=== PATIENT | male | born 1940 | race Caucasian/White ===

== ENCOUNTER 2016-06-23 16:35 | Inpatient (IN) | payer MEDICARE, OTHER ==
--- NOTE | ~2016-06-23 | OP ---
Record Of Operation [facility] [address] [place]. [address] NAME: LYDIA CHANG : 42 STATUS : ADM IN PAT#: [id number] AGE: 75 ADM/REG DATE : 06/23/16 MR#: [id number] REPORT SERV DATE: 06/23/16 DICTATED BY: HOSEA REYES DATE: 06/23/16 REPORT STATUS : Draft TRANSCRIBED BY: MODL DATE: 06/23/16 DATE OF PROCEDURE: 06/23/2016 INDICATION FOR THIS PROCEDURE: Acute inferior wall myocardial infarction. PROCEDURE IN DETAIL: The patient had already been prepped and draped. A 6-English sheath was placed in the right femoral artery from preceding cardiac catheterization. A 6 JR4 coronary guiding catheter was advanced to right coronary ostium, right coronary artery injections confirmed the presence of 100% occlusion of the previously stented segment in the mid right coronary artery proximal to the origin of the right posterior descending branch. A 0.014 Graphix guidewire was passed into the distal right coronary artery. The vessel was dilated with 3.0/15 emerge balloon at up to 15 atmospheres pressure for 15 seconds in duration. After balloon inflations, some flow was reestablished into the distal vessel, it was apparent that there was a large amount of thrombus in the previously stented segment but no obvious stenosis. The Graphix guidewire was exchanged for 0.014 Grand Slam guidewire and thrombectomy was performed using a Pronto thrombectomy catheter. The Pronto catheter could not be passed in the more distal segment of the right coronary artery, and decided to proceed with Angiojet thrombectomy. Using the Seldinger technique, a 6-English sheath was placed in the right femoral vein and a transvenous pacing catheter was advanced to the right ventricular apex. Thrombectomy was then performed using the Angiojet device. The Grand Slam guidewire was then redirected into the distal right posterior descending branch and additional thrombectomy was performed. Intracoronary Cardene was administered through Transit infusion catheter. Following removal of the guidewire and catheter, final right coronary artery injection showed 0% residual stenosis at the site of previous occlusion with MACKENZIE grade 3 distal flow. The guiding catheters and temporary pacing catheter were removed and the sheath was left in place. There were no apparent complications. TOTAL CONTRAST USED: 230 mL. TOTAL RADIATION EXPOSURE: 1430 mGy. ESTIMATED BLOOD LOSS: No significant blood loss occurred. IMPRESSION: Recanalization of totally occluded stent in mid right coronary artery using balloon angioplasty, AngioJet thrombectomy, and intracoronary infusion of Cardene. KLEBER/MAURA Hosea Reyes M.D., F.A.C.C. / [id number] CC: Record Of Operation [address] [address] NAME: LYDIA CHANG : 42 STATUS : ADM IN [facility]#: [id number] AGE: 75 ADM/REG DATE : 06/23/16 MR#: [id number] REPORT SERV DATE: 06/23/16 DICTATED BY: HOSEA REYES DATE: 06/23/16 REPORT STATUS : Draft TRANSCRIBED BY: MAURA DATE: 06/23/16 Hosea Reyes M.D., F.A.C.CMD Duke Tatum M.D.
--- NOTE | ~2016-06-23 | OP ---
Record Of Operation [facility] [address] [place]. [address] NAME: LYDIA CHANG : 42 STATUS : ADM IN PAT#: [id number] AGE: 75 ADM/REG DATE : 06/23/16 MR#: [id number] REPORT SERV DATE: 06/23/16 DICTATED BY: HOSEA REYES DATE: 06/23/16 REPORT STATUS : Draft TRANSCRIBED BY: MAURA DATE: 06/23/16 DATE OF PROCEDURE: 06/23/2016 CARDIAC CATHETERIZATION REPORT INDICATION FOR THIS PROCEDURE: Acute inferior wall myocardial infarction procedure. PROCEDURE: The patient was brought emergently to the cardiac catheterization laboratory after presenting to the ER with a new onset substernal chest discomfort and minimal J-point elevation in the inferior leads. The patient was prepped and draped in usual sterile fashion. Adequate anesthesia was obtained over the right femoral vessels using lidocaine infiltration. Using the Seldinger technique, a 6-Bulgarian sheath was placed in the right femoral artery. A 6 FL4 coronary catheter was advanced to the left coronary ostium. Left coronary artery injections were performed in multiple views. Left coronary catheter was then exchanged for a 6 FR4 coronary catheter which was advanced to the right coronary ostium. Right coronary injections were then performed in the BRUNEIAN view. The right coronary catheter was exchanged for a 6-Bulgarian pigtail catheter, which was advanced into the left ventricular cavity. Pressures were measured across the aortic valve. A left ventricular angiogram was obtained in the GARNICA projection. The pigtail catheter was removed over a guidewire and the sheath was left in place in anticipation of subsequent angioplasty. There were no apparent complications. RESULTS: 1. Pressures: The left ventricular end-diastolic pressure was 15 mmHg and no gradient was present across the aortic valve. 2. Left ventricular angiogram: Left ventricle showed inferobasilar hypokinesis with global ejection fraction of 50%. 3. Coronary arteriograms: The left main coronary artery is normal. Left anterior descending coronary artery is normal. Left circumflex coronary artery is normal. The right coronary artery was a dominant vessel, and the previously stented segment in the mid vessel proximal to the origin of the posterior descending branch was 100% occluded. IMPRESSION: Acute occlusion of previously stented segment proximal to the origin of right posterior descending branch. PLAN: Proceed with PCI. KLEBER/MAURA Hosea Reyes M.D., NerissaCRanjanC. / [id number] Record Of Operation [address] [address] NAME: LYDIA CHANG : 42 STATUS : ADM IN PAT#: [id number] AGE: 75 ADM/REG DATE : 06/23/16 MR#: [id number] REPORT SERV DATE: 06/23/16 DICTATED BY: HOSEA REYES DATE: 06/23/16 REPORT STATUS : Draft TRANSCRIBED BY: MAURA DATE: 06/23/16 CC: Hosea Reyes M.D., AldenCRanjan Wright M.D.
--- NOTE | ~2016-06-23 | DS ---
Discharge Summary [facility] [address] [place]. [address] NAME: LYDIA CHANG : 42 STATUS : DIS IN PAT#: [id number] AGE: 75 ADM/REG DATE : 06/23/16 MR#: [id number] REPORT SERV DATE: 07/04/16 DICTATED BY: HOSEA REYES DATE: 07/03/16 REPORT STATUS : Draft TRANSCRIBED BY: MAURA DATE: 07/03/16 Data Collection from hospitalization DISCHARGE DIAGNOSES: 1. ST-elevation myocardial infarction - acute, status post percutaneous transluminal coronary angioplasty of the right coronary artery. 2. Small cell lung cancer. 3. Chronic kidney disease - stable. 4. Urinary tract infection. 5. Coronary artery disease. 6. Hypertension. 7. Obstructive sleep apnea. 8. Hyperlipidemia. 9. Chronic obstructive pulmonary disease. CONSULTATIONS: Mario Solis MD PROCEDURES PERFORMED: Cardiac catheterization and percutaneous coronary intervention, 06/23/2016. DISCHARGE MEDICATIONS: Aspirin 81 mg daily, Coreg 3.125 mg twice a day, Omnicef 300 mg twice a day, Prinivil 10 mg every evening, melatonin 5 mg at bedtime, Zofran 8 mg sublingually every 4 to 6 hours, MiraLAX powder one packet daily as needed, Compazine 5 mg every 8 hours as needed, Crestor 1 tablet daily in the a.m., Brilinta 90 mg twice a day, and Spiriva HandiHaler one capsule via inhaler daily. CONDITION AT DISCHARGE: Stable. DISPOSITION: The patient was discharged home on an 1800-calorie cardiac/diabetic diet with activities as instructed. He will follow up with me on 07/10/2016. HOSPITAL COURSE: This is a 75-year-old man who has a history of myocardial infarction approximately five years ago. The patient presented to the emergency room at this time with complaints of oppressive substernal chest discomfort of approximately six hours duration. It was associated with some nausea and vomiting. The patient had recently started chemotherapy for lung cancer. He was admitted to the hospital at this time for further evaluation and treatment. Upon admission, it was felt that he would need to undergo cardiac catheterization and possible percutaneous coronary intervention. He was taken to the cardiac biology laboratory assistant where he underwent the above-mentioned procedure. He tolerated this well. There were no complications. The following day, he was seen by Dr. Mario Solis. The patient has limited stage small cell lung cancer, and was on chemo/radiation therapy. He had no chest pain at this time. He did have some chills. He had some dysuria and frequency. If it was okay with Cardiology, he wanted to continue radiation therapy. He completed cycle 2 chemotherapy the week prior to this admission. The patient does have benign prostatic hypertrophy and obstruction issue. Cultures were going to be obtained, Rocephin was started while we awaited culture results. Creatinine was near his baseline. He did have some Discharge Summary [address] [address] NAME: LYDIA CHANG : 42 STATUS : DIS IN PAT#: [id number] AGE: 75 ADM/REG DATE : 06/23/16 MR#: [id number] REPORT SERV DATE: 07/04/16 DICTATED BY: HOSEA REYES DATE: 07/03/16 REPORT STATUS : Draft TRANSCRIBED BY: MAURA DATE: 07/03/16 nausea and chills. Radiation therapy was going to be performed. His lungs were clear. On the , low-dose CORNELIUS inhibitor was started. He was able to eat a little. His T-max was 99.2. He had no edema. His dysuria resolved. He was afebrile. His Zofran was increased. Creatinine level had improved. He was going to be changed to oral Rocephin the following day. Discharge planning was performed. On 06/26/2016, his nausea had improved, he was breathing okay. He denied any dysuria. His T-max was 100. He had no edema. Radiation therapy has been provided. Creatinine was at baseline. He had been found to have E coli urinary tract infection with neutropenia and low-grade temp. His antibiotic was changed to Omnicef. He had no chest pain. Discharge instructions were given. Due to his improved and stable condition, he was discharged home with the above-stated instructions. Information collected by: Bre Arce I submit the above information as my discharge summary. ROB/MAURA Hosea Reyes M.D., Nnamdi / [id number] CC: Hosea Reyes M.D., Rachel Carson MD
--- NOTE | ~2016-06-23 | HP ---
History And Physical [address] [place]. [address] NAME: LYDIA CHANG : 42 STATUS : ADM IN PAT#: [id number] AGE: 75 ADM/REG DATE : 06/23/16 MR#: [id number] REPORT SERV DATE: 06/23/16 DICTATED BY: AMANDA GONZALES DATE: 06/23/16 REPORT STATUS : Draft TRANSCRIBED BY: MODL DATE: 06/23/16 DATE OF ADMISSION: 06/23/2016 DATE OF PROCEDURE: 06/23/2016. INDICATIONS FOR PROCEDURE: Acute coronary syndrome. HISTORY: The patient is a 75-year-old white male with a history of a myocardial infarction approximately 5 years ago. The patient presented to the emergency room with a complaint of oppressive substernal chest discomfort of approximately 6 hours duration. It was associated with some nausea and vomiting. Patient recently started chemotherapy for lung cancer. PAST MEDICAL HISTORY: Remarkable for coronary artery disease and lung cancer. SOCIAL HISTORY: The patient quit smoking about a year and half ago. FAMILY HISTORY: Positive for coronary disease. REVIEW OF SYSTEMS: The patient denies cough, wheeze, or sputum production. He has had some nausea and vomiting associated with this chest pain. He has nod had any diarrhea or dysuria. PHYSICAL EXAMINATION: VITAL SIGNS: Blood pressure is 108/70, heart rate is 80 and regular, respirations 16 and nonlabored. HEENT: Unremarkable. NECK: No jugular venous distention with good carotid upstroke. CHEST: Clear. CARDIOVASCULAR: The PMI is not displaced. S1 is normal. S2 is narrowly split. No gallop is present. ABDOMEN: Soft and nontender with normal bowel sounds. EXTREMITIES: No cyanosis, clubbing, or edema. SKIN: Warm and dry with no pallor or icterus. NEURO/PSYCH: The patient is oriented x3 with appropriate affect. DIAGNOSTIC DATA: EKG shows sinus rhythm with about 1 mm of J-point elevation in the inferior leads. IMPRESSION: 1. Acute coronary syndrome. 2. Lung cancer. PLAN: Proceed with cardiac catheterization and possible PCI. SS/MODL History And Physical [address] [address] NAME: LYDIA CHANG : 42 STATUS : ADM IN PAT#: [id number] AGE: 75 ADM/REG DATE : 06/23/16 MR#: [id number] REPORT SERV DATE: 06/23/16 DICTATED BY: AMANDA GONZALES DATE: 06/23/16 REPORT STATUS : Draft TRANSCRIBED BY: MAURA DATE: 06/23/16 anda Gonzales M.D., F.A.C.C. / [id number]
[~2016-06-23 16:35] MED LIST: ASAB PO; CEFT5 PO; CRESTOR10 PO; LISINOPRIL40 MG PO; MELATONIN5 M1 PO; MIRALAX POWDER1 PKT PO; SPIRIVA INH
[2016-06-23 17:28] LABS: BASOPHILS 0.3 %; BASOPHILS ABSOLUTE 0.02 10/3/uL (0.0-0.16); EOSINOPHILS 0 %; HEMOGLOBIN 12.3 g/dL (13.6-17.8); IMMATURE GRANULOCYTES 1.6 %; IMMATURE GRANULOCYTES ABSOLUTE 0.09 10/3/uL (0.0-0.11); LYMPHOCYTES 2.6 %; LYMPHOCYTES ABSOLUTE 0.15 10/3/uL (0.67-4.30); MEAN CORPUS HGB CONC 34.9 g/dL (32.0-36.0); MEAN CORPUSCULAR HEMOGLOB 29.1 pg (26.0-34.0); MEAN PLATELET VOLUME 8.8 fL (9.2-13.0); MONOCYTES 0.2 %; MONOCYTES ABSOLUTE 0.01 10/3/uL (0.21-1.20); NEUTROPHILS 95.3 %; NEUTROPHILS ABSOLUTE 5.53 10/3/uL (2.02-8.40); RBC DISTRIBUTION WIDTH 15.6 % (12.0-16.0); RED CELL COUNT 4.22 10/6/uL (4.7-6.1); WHITE BLOOD CELLS 5.8 10/3/uL (4.5-10.5)
[2016-06-23 17:33] LABS: HEMATOCRIT 35.2 % (40.0-51.0); MANUAL DIFF NO %; MEAN CORPUSCULAR VOLUME 83.4 fL (80-100); PLATELET COUNT 403 10/3/uL (150-400)
[2016-06-23 17:41] LABS: INFLUENZA A SCREEN NEGATIVE (NEGATIVE); INFLUENZA B SCREEN NEGATIVE (NEGATIVE)
[2016-06-23 17:46] LABS: LACTATE 3.1 MMOL/L (0.3-2.4)
[2016-06-23 17:48] LABS: A/G RATIO 0.7 (0.7-1.9); ALKALINE PHOSPHATASE 79 U/L (45-117); CALCIUM, SERUM 8.9 MG/DL (8.5-10.4); CHLORIDE, SERUM 99 MMOL/L (96-112); CO2 (CARBON DIOXIDE) 22 MMOL/L (24-34); CREATININE 1.36 MG/DL (0.70-1.30); GFR AFRICAN AMERICAN 59 ML/MIN (>=60); GFR NON AFRICAN AMERICAN 51 ML/MIN (>=60); GLOBULIN 4.1 G/DL (2.5-4.1); POTASSIUM, SERUM 4.3 MMOL/L (3.5-5.3); SGOT(AST) 13 U/L (5-40); SGPT(ALT) 29 U/L (5-65); SODIUM, SERUM 135 MMOL/L (135-148); TOTAL BILIRUBIN 0.4 MG/DL (0-1.2); TOTAL PROTEIN 7.1 G/DL (6.0-8.5)
[2016-06-23 17:50] LABS: BUN (BLOOD UREA NITROGEN) 25 MG/DL (6-23); GLUCOSE, SERUM 178 MG/DL (60-99)
[2016-06-23] MEDS ORDERED: PLAVIX PO (18:03)
[2016-06-23 19:56] LABS: ASCORBIC ACID (UR NOT ORDER) NEG (NEG); BILIRUBIN, URINE NEGATIVE (NEG); ER URINALYSIS TAT 0 Hrs 12 Mins; KETONE, URINE NEGATIVE (NEG); LEUKOCYTE ESTERASE(NOT OR LARGE (NEG); NITRITE (URINE) NEG (NEG); WBC (NOT ORDERED) (RFLEX) 171 (0-5)
[2016-06-24 04:16] LABS: BASOPHILS 0.2 %; BASOPHILS ABSOLUTE 0.01 10/3/uL (0.0-0.16); EOSINOPHILS 0 %; HEMOGLOBIN 10.5 g/dL (13.6-17.8); IMMATURE GRANULOCYTES 1.6 %; IMMATURE GRANULOCYTES ABSOLUTE 0.08 10/3/uL (0.0-0.11); LYMPHOCYTES 1.6 %; LYMPHOCYTES ABSOLUTE 0.08 10/3/uL (0.67-4.30); MEAN CORPUS HGB CONC 34.3 g/dL (32.0-36.0); MEAN CORPUSCULAR HEMOGLOB 28.9 pg (26.0-34.0); MEAN CORPUSCULAR VOLUME 84.3 fL (80-100); MEAN PLATELET VOLUME 8.6 fL (9.2-13.0); MONOCYTES 0.2 %; MONOCYTES ABSOLUTE 0.01 10/3/uL (0.21-1.20); NEUTROPHILS 96.4 %; NEUTROPHILS ABSOLUTE 4.96 10/3/uL (2.02-8.40); PLATELET COUNT 304 10/3/uL (150-400); RBC DISTRIBUTION WIDTH 15.8 % (12.0-16.0); RED CELL COUNT 3.63 10/6/uL (4.7-6.1); WHITE BLOOD CELLS 5.1 10/3/uL (4.5-10.5)
[2016-06-24 04:18] LABS: HEMATOCRIT 30.6 % (40.0-51.0); MANUAL DIFF NO %
[2016-06-24 04:45] LABS: BUN (BLOOD UREA NITROGEN) 26 MG/DL (6-23); CALCIUM, SERUM 8.3 MG/DL (8.5-10.4); CHLORIDE, SERUM 103 MMOL/L (96-112); CO2 (CARBON DIOXIDE) 23 MMOL/L (24-34); CPK 1137 U/L (0-200); CREATININE 1.28 MG/DL (0.70-1.30); GFR AFRICAN AMERICAN 64 ML/MIN (>=60); GFR NON AFRICAN AMERICAN 55 ML/MIN (>=60); GLUCOSE, SERUM 145 MG/DL (60-99); POTASSIUM, SERUM 4.6 MMOL/L (3.5-5.3); SODIUM, SERUM 135 MMOL/L (135-148)
[2016-06-25 07:53] LABS: HEMOGLOBIN 9.6 g/dL (13.6-17.8); MEAN CORPUS HGB CONC 34.3 g/dL (32.0-36.0); MEAN CORPUSCULAR HEMOGLOB 28.1 pg (26.0-34.0); MEAN CORPUSCULAR VOLUME 81.9 fL (80-100); MEAN PLATELET VOLUME 8.7 fL (9.2-13.0); PLATELET COUNT 229 10/3/uL (150-400); RBC DISTRIBUTION WIDTH 15.8 % (12.0-16.0); RED CELL COUNT 3.42 10/6/uL (4.7-6.1)
[2016-06-25 07:56] LABS: MANUAL DIFF YES %; WHITE BLOOD CELLS 1.7 10/3/uL (4.5-10.5)
[2016-06-25 08:08] LABS: BUN (BLOOD UREA NITROGEN) 26 MG/DL (6-23); CALCIUM, SERUM 8.1 MG/DL (8.5-10.4); CHLORIDE, SERUM 102 MMOL/L (96-112); CK-MB 6.7 NG/ML; CO2 (CARBON DIOXIDE) 22 MMOL/L (24-34); CPK 406 U/L (0-200); CREATININE 1.03 MG/DL (0.70-1.30); GFR AFRICAN AMERICAN 83 ML/MIN (>=60); GFR NON AFRICAN AMERICAN 72 ML/MIN (>=60); SODIUM, SERUM 133 MMOL/L (135-148)
[2016-06-25 08:10] LABS: CKMB INDEX (NOT ORD) 1.7; GLUCOSE, SERUM 99 MG/DL (60-99)
[2016-06-25 08:45] LABS: BAND NEUTROPHILS 5 %; LYMPHOCYTES 10 %; LYMPHOCYTES ABSOLUTE (CALC) 0.17 10/3/uL (0.67-4.30); MONOCYTES 1 %; MONOCYTES ABSOLUTE (CALC) 0.02 10/3/uL (0.21-1.20); NEUTROPHILS ABSOLUTE (CALC) 1.51 10/3/uL (2.02-8.40); PLATELET ESTIMATE ADQ (ADEQUATE); SEGMENTED NEUTROPHIL (0) 84 %; TOTAL NUCLEATED CELLS 100
[2016-06-25 08:46] LABS: POLYCHROMASIA 1+ (2-5/OIF) (0-1/OIF)
[2016-06-26 06:55] LABS: HEMATOCRIT 28.4 % (40.0-51.0); HEMOGLOBIN 9.9 g/dL (13.6-17.8); MANUAL DIFF YES %; MEAN CORPUS HGB CONC 34.9 g/dL (32.0-36.0); MEAN CORPUSCULAR HEMOGLOB 28.8 pg (26.0-34.0); MEAN CORPUSCULAR VOLUME 82.6 fL (80-100); MEAN PLATELET VOLUME 8.9 fL (9.2-13.0); PLATELET COUNT 196 10/3/uL (150-400); RBC DISTRIBUTION WIDTH 15.5 % (12.0-16.0); RED CELL COUNT 3.44 10/6/uL (4.7-6.1); WHITE BLOOD CELLS 0.6 10/3/uL (4.5-10.5)
[2016-06-26 07:06] LABS: BUN (BLOOD UREA NITROGEN) 24 MG/DL (6-23); CALCIUM, SERUM 8.1 MG/DL (8.5-10.4); CHLORIDE, SERUM 101 MMOL/L (96-112); CO2 (CARBON DIOXIDE) 23 MMOL/L (24-34); CREATININE 1.07 MG/DL (0.70-1.30); GFR AFRICAN AMERICAN 79 ML/MIN (>=60); GFR NON AFRICAN AMERICAN 69 ML/MIN (>=60); GLUCOSE, SERUM 108 MG/DL (60-99); POTASSIUM, SERUM 3.7 MMOL/L (3.5-5.3); SODIUM, SERUM 132 MMOL/L (135-148)
[2016-06-26 07:16] LABS: BAND NEUTROPHILS 4 %; EOSINOPHILS 8 %; EOSINOPHILS ABSOLUTE (CALC) 0.05 10/3/uL (0.0-0.53); LYMPHOCYTES 40 %; LYMPHOCYTES ABSOLUTE (CALC) 0.24 10/3/uL (0.67-4.30); NEUTROPHILS ABSOLUTE (CALC) 0.31 10/3/uL (2.02-8.40); PLATELET ESTIMATE ADQ (ADEQUATE); POLYCHROMASIA 1+ (2-5/OIF) (0-1/OIF); SEGMENTED NEUTROPHIL (0) 48 %; TOTAL NUCLEATED CELLS 25
[2016-06-26] MEDS ORDERED: PRIN10 PO (16:45)
[2016-06-26] MEDS ORDERED: COREG3 PO (16:46)
[2016-06-26] MEDS ORDERED: ZOFRANODT8 SL (16:48)
[2016-06-26] MEDS ORDERED: COMP5B PO (16:49)
[2016-06-26] MEDS ORDERED: OMNICEF300 PO (16:50)
[2016-06-26] MEDS ORDERED: BRILINTA90 MG PO (16:50)
[2016-06-29] MEDS ORDERED: NITROSTAT0.4 MG SL (20:36)
[2016-06-29] MEDS ORDERED: SUCR PO (20:36)
== END 2016-06-26 17:25 | disposition home or self-care (01) | DRG 250 ==
LOC: ER 16:35 → SSU2 17:56 → CCU 20:07 → 1SO 06-24 15:12
PROVIDERS: Emergency Medicine; Internal Medicine Hematology & Oncology; Internal Medicine Interventional Cardiology
PROC: 4A023N7 Measurement of Cardiac Sampling and Pressure, Left Heart, Percutaneous Approach (ICD-10-PCS; principal; 2016-06-23)
PROC: 02703ZZ Dilation of Coronary Artery, One Artery, Percutaneous Approach (ICD-10-PCS; 2016-06-23)
PROC: 02C03ZZ Extirpation of Matter from Coronary Artery, One Artery, Percutaneous Approach (ICD-10-PCS; 2016-06-23)
PROC: B2111ZZ Fluoroscopy of Multiple Coronary Arteries using Low Osmolar Contrast (ICD-10-PCS; 2016-06-23)
PROC: B2151ZZ Fluoroscopy of Left Heart using Low Osmolar Contrast (ICD-10-PCS; 2016-06-23)
DX: T82.867A Thrombosis due to cardiac prosthetic devices, implants and grafts, initial encounter (principal); I21.19 ST elevation (STEMI) myocardial infarction involving other coronary artery of inferior wall; C34.90 Malignant neoplasm of unspecified part of unspecified bronchus or lung; Y83.8 Other surgical procedures as the cause of abnormal reaction of the patient, or of later complication, without mention of misadventure at the time of the procedure; I25.2 Old myocardial infarction; Z87.891 Personal history of nicotine dependence; Z79.82 Long term (current) use of aspirin; Z79.02 Long term (current) use of antithrombotics/antiplatelets; Z79.899 Other long term (current) drug therapy
CPT/HCPCS: 77386; 80048; 80053; 81001; 82550; 82553; 82962; 83605; 83690; 83735; 84484; 85025; 87077; 87086; 87186; 87804; 92941; 92973; 93005; 93458; 96374; 96376; 99285; A9270-GY; C1725; C1757; C1769; C1887; C1894; J0583; J2250; J2405; J2550; J3010; Q9967

== ENCOUNTER 2016-06-29 21:52 | Inpatient (IN) | payer MEDICARE, OTHER ==
--- NOTE | ~2016-06-29 | DS ---
Discharge Summary [facility] [address] [place]. [address] NAME: LYDIA CHANG : 42 STATUS : DIS IN PAT#: [id number] AGE: 75 ADM/REG DATE : 06/29/16 MR#: [id number] REPORT SERV DATE: 07/03/16 DICTATED BY: DATE: REPORT STATUS : Draft TRANSCRIBED BY: MODL DATE: 07/02/16 ADMISSION DATE: 06/29/2016 DISCHARGE DATE: 07/02/2016 DISCHARGE DIAGNOSES: 1. Urinary tract infection. 2. Neutropenic fever, resolved. 3. Acute inferior wall myocardial infarction, recent. 4. Limited-stage small cell lung cancer. 5. Hyperlipidemia. 6. Hypertension. 7. Nonanion gap metabolic acidosis. CONSULTATIONS: Dr. Solis, [facility]. PERTINENT TESTS AND PROCEDURES: 1. Chest x-ray, 06/29/2016, impression, lungs are clear. Pulmonary vessels are normal. No acute process. 2. Blood cultures x2 sites collected, 06/29/2016, preliminary results, no growth at two days. 3. Influenza screen A and B, 06/29/2016, results negative. 4. Urinalysis, specimen collected, 06/29/2016, result, trace of leukocyte esterase, negative nitrite, 3 red blood cells, 16 white blood cells. 5. Procalcitonin, 06/29/2016, result reported to be 0.14. 6. Serial troponins, 06/30/2016, results reported to be 0.89, 0.68, and 0.57. CHIEF COMPLAINT UPON ADMISSION: Neutropenic fever. HOSPITAL COURSE: Please refer to history and physical dated 06/29/[address] Ralph Messer for complete details of the patient's initial presentation upon admission and health history. Briefly, the patient is a 75-year-old male, who is under the outpatient care of Dr. Solis at [facility] for treatment of limited-stage small cell lung cancer. The patient is currently receiving chemotherapy and radiation therapy. Prior to this admission, the last round of chemotherapy was given between the dates of 06/19/2016 and 06/21/2016. The patient presented to the emergency department on 06/29/2016 with complaints of fever at home up to 101.8 degrees Fahrenheit. The patient also underwent cardiac stenting several days prior to this admission and was also being treated on an outpatient basis for urinary tract infection. 1. Recent urinary tract infection. The patient had been treated since 06/23/2016 for an E. coli urinary tract infection. The patient has antibiotic history to include inpatient Rocephin between 06/24/2016 and 06/25/2016 during last admission in addition to Duricef and Omnicef. The patient was on Omnicef approximately two days at home Discharge Summary [address] [address] NAME: LYDIA CHANG : 42 STATUS : DIS IN PAT#: [id number] AGE: 75 ADM/REG DATE : 06/29/16 MR#: [id number] REPORT SERV DATE: 07/03/16 DICTATED BY: DATE: REPORT STATUS : Draft TRANSCRIBED BY: MODL DATE: 07/02/16 before this admission. Upon recent admit, Omnicef was discontinued and the patient was placed on cefepime secondary to neutropenic fever. Upon discharge, the patient will continue Omnicef x2 more days to complete therapy for complicated urinary tract infection. On day of discharge, the patient is asymptomatic to include no dysuria or hematuria. The patient will follow up outpatient with Urology next week. 2. Neutropenic fever. The patient has remained afebrile during this admission. White blood cell count was reported to be 0.4 upon admission and has trended upward daily to 1.3 today. The patient's absolute neutrophil count has also increased from 40 to 810. The patient will be monitored closely on an outpatient basis by [facility]. 3. Recent acute inferior wall myocardial infarction. Prior to this admission, the patient underwent recanalization of totally occluded stent in mid right coronary artery and stenting secondary to acute occlusion of previously stented segment proximal to the origin of right posterior descending branch. The patient is being followed on an outpatient basis by Dr. Reyes. Since cardiac intervention, the patient has been taking Brilinta 90 mg p.o. twice daily. The patient will continue this medication upon discharge. However, platelets will need to be followed closely. 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 Platelets are stable at 56 today. The patient will follow up for repeat labs, Friday, at [facility]. 4. Limited-stage small cell lung cancer. The patient is currently undergoing chemotherapy and radiation therapy. This will be managed per Dr. Solis at [facility]. 5. Hyperlipidemia. Continue home dose of Crestor. 6. Hypertension. Continue home dose of lisinopril. 7. Nonanion gap metabolic acidosis. The patient's bicarb has decreased to 19 today. However, there are no outward signs or symptoms of infection. The patient is afebrile and counts are recovering. Labs will be monitored at [facility]. DISCHARGE CONDITION: Patient is hemodynamically stable. DISCHARGE DIET: Regular diet as tolerated. DISCHARGE MEDICATIONS: 1. Aspirin 81 mg tablet p.o. daily. 2. Prinivil 10 mg tablet p.o. daily. 3. Melatonin 5 mg tablet p.o. at bedtime. 4. Carafate 1 g p.o. before meals and at bedtime. 5. Spiriva one inhalation treatment daily. 6. Brilinta 90 mg tablet p.o. twice daily. 7. Crestor 10 mg tablet p.o. daily. 8. MiraLAX 17 g p.o. daily as needed. 9. Zofran 8 mg tablet sublingual every four to six hours as needed. 10.Compazine 5 mg tablet p.o. every eight hours as needed. 11.Omnicef 300 mg tablet p.o. twice daily x2 days, last dose 07/04/2016 p.m., then stop. The patient has home supply. 12.Nitrostat 0.4 mg sublingual p.r.n. for chest pain. 13.MD Rivas mouthwash 5 mL p.o. every six hours swish and spit for mouth ulcer. DISCHARGE INSTRUCTIONS: Discharge Summary [address] [address] NAME: LYDIA CHANG : 42 STATUS : DIS IN PAT#: [id number] AGE: 75 ADM/REG DATE : 06/29/16 MR#: [id number] REPORT SERV DATE: 07/03/16 DICTATED BY: DATE: REPORT STATUS : Draft TRANSCRIBED BY: MODL DATE: 07/02/16 1. Follow up with Dr. Solis, [facility], 07/05/2016 at 1:45 for lab draw. 2. Follow up with Dr. Blake Fischer, Urology, 07/08/2016 at 2:30. 3. Follow up with Dr. Hosea Reyes, Cardiology, 07/16/2016 at 10:15 a.m. The patient and his spouse were educated to return to the emergency department for any acute onset of chest pain, shortness of breath, syncopal or near syncopal episodes, fever of 100.4 or greater lasting more than one hour, uncontrolled chills, rigors, intractable nausea, vomiting, diarrhea, or any other concerns that are deviations from his baseline status at the time of this discharge. PRIMARY ONCOLOGIST: Dr. Solis, [facility]. PRIMARY UROLOGIST: Dr. Blake Fischer. PRIMARY MOLD WASHER: Dr. Hosea Reyes. JWH/SUKUMARL SIVA Nunez / [id number] CC: MD MAKENZIE Carrington II
--- NOTE | ~2016-06-29 | HP ---
History And Physical [id number] [place]. [address] NAME: LYDIA CHANG : 44 STATUS : ADM IN [facility]#: [id number] AGE: 75 ADM/REG DATE : 06/29/16 MR#: [id number] REPORT SERV DATE: 06/29/16 DICTATED BY: RALPH SANCHEZ DATE: 06/29/16 REPORT STATUS : Draft TRANSCRIBED BY: MODL DATE: 06/29/16 DATE OF ADMISSION: 06/29/2016 CHIEF COMPLAINT: A neutropenic fever. HISTORY OF PRESENT ILLNESS: This is a 75-year-old gentleman with history of small cell lung cancer. Currently, undergoing chemotherapy per Dr. Solis presenting with a neutropenic fever. Again, the patient is currently under care of Dr. Solis and he is being treated for small cell lung cancer. The patient had chemotherapy last on June 19 through , and he has plans to get his 3rd round of chemo on July 10. The patient is also getting radiation therapy and his last radiation therapy was yesterday. The patient also had what sounds like intraluminal thrombosis of previous cardiac stents and sustained an anterior AL just a few days ago and had cardiac stents put in by Dr. Reyes. In the midst of all this, the patient was also getting treated for a urinary tract infection with Omnicef. Throughout his hospitalizations and treatment of urinary tract infections, the patient never really developed a fever. The patient was last seen by Dr. Solis yesterday as he was getting IV fluids after radiation therapy. At that time, the patient did not feel good and he was actually given a dose of Rocephin along with the IV fluids. The patient went home feeling okay until later yesterday evening. He started having night sweats with chills. This morning, the patient had fever up to 101.8 at home. The patient was instructed to come to the ER for further evaluation and care. The patient reports that other than the fever itself, the patient did not have any focal symptoms. He denies any cough or shortness of breath. The patient denies any focal pain. The patient also denies any urinary symptoms. In the ER, the patient was found to be actually a febrile to temperature of 99.3. The patient was also hemodynamically stable. Initial lab evaluation revealed a white blood cell count of 400 and absolute neutrophil count of just 30. Dr. Solis was contacted per ER who advised getting the patient admitted and starting him on empiric antibiotic therapy. Internal Medicine consultation was thus requested for admission of the patient for further evaluation and care. Notably in the ER, there was no obvious focus of infection. REVIEW OF SYSTEMS: The patient had the fever up to 101.8 at home. Also 14-point review of systems reviewed and negative other than mentioned above. MEDICATIONS: 1. Aspirin 81 mg p.o. daily. 2. Omnicef 300 mg p.o. b.i.d. x7 days. 3. Lisinopril 10 mg p.o. q.p.m. 4. Melatonin 5 mg p.o. at bedtime. 5. Nitrostat 0.4 mg sublingually as needed for chest pain. 6. Zofran 8 mg p.o. q.6 hours p.r.n. 7. MiraLAX one packet p.o. daily as needed. 8. Compazine 5 mg p.o. q.8 hours p.r.n. 9. Crestor 10 mg p.o. at bedtime. History And Physical [address] [address] NAME: LYDIA CHANG : 44 STATUS : ADM IN [facility]#: [id number] AGE: 75 ADM/REG DATE : 06/29/16 MR#: [id number] REPORT SERV DATE: 06/29/16 DICTATED BY: RALPH SANCHEZ DATE: 06/29/16 REPORT STATUS : Draft TRANSCRIBED BY: MAURA DATE: 06/29/16 10.Carafate 1 g p.o. before meals and at bedtime. 11.Brilinta 90 mg p.o. b.i.d. 12.Spiriva one capsule inhalation daily. ALLERGIES: NKDA. PAST MEDICAL HISTORY: 1. Small-cell lung cancer for which patient follows with Dr. Solis. The patient is getting chemotherapy, as well as radiation therapy. The patient's last chemo was June 19 through . The patient's last radiation was just yesterday. 2. COPD. 3. Coronary artery disease. 4. Obstructive sleep apnea. 5. Hypertension. 6. Hyperlipidemia. 7. Acute anterior wall AL, status post PCI on 06/24. PAST SURGICAL HISTORY: 1. Right hip surgery. 2. Benign throat tumor resection. 3. Again PCI on 06/24. FAMILY HISTORY: 1. COPD. 2. Uterine cancer. SOCIAL HISTORY: The patient has quit smoking about a year ago. The patient does not drink alcohol or use any illicit drugs. The patient is a retired regional dedicated truck driver. PHYSICAL EXAMINATION: VITAL SIGNS: Temperature 99.3, blood pressure 118/51, pulse 88, respiratory rate is 18, saturating 98% on 3 L of oxygen per nasal cannula. CONSTITUTIONAL: Physical exam, the patient is alert and oriented x3 with no focal neurologic deficits. GENERAL: The patient is awake, does not appear to be in acute distress, and he is cooperative. NECK: No JVD. No lymphadenopathy. Normal thyroid. CHEST: No midline sternotomy scar and no tenderness to palpation. LUNGS: Clear to auscultation bilaterally with normal respiratory effort on room air. CARDIOVASCULAR: Regular rate and rhythm with no murmurs, rubs, or gallops, and PMI is nondisplaced. ABDOMEN: Soft, nontender, with active bowel sounds and no organomegaly. EXTREMITIES: No edema. Normal distal pulses. No calf tenderness. SKIN: Clean, dry, warm, and intact. LABORATORY DATA: Sodium is 134, potassium 3.6, chloride 101, BUN 20, creatinine 1.12, glucose 149, calcium 8.0. LFTs are benign. White blood cell count of 0.4 with absolute History And Physical [address] [address] NAME: LYDIA CHANG : 44 STATUS : ADM IN [facility]#: [id number] AGE: 75 ADM/REG DATE : 06/29/16 MR#: [id number] REPORT SERV DATE: 06/29/16 DICTATED BY: RALPH SANCHEZ DATE: 06/29/16 REPORT STATUS : Draft TRANSCRIBED BY: MODL DATE: 06/29/16 neutrophil count of 30. Hemoglobin is 10.4, platelets 103, INR is 1.2. Lactate was 2.9. Flu panel was negative for A and B. Urinalysis was borderline with trace leukocyte esterase, and 16 white cells only, but the patient did have a urine culture that was collected on June 23, which is about a week ago that was positive for E. coli. ASSESSMENT: This is a 75-year-old gentleman with history of small cell lung cancer. Currently, undergoing chemotherapy presenting with a neutropenic fever. 1. Neutropenic fever, unclear source, but the most likely source is urinary as the patient had E. coli. Positive urine culture from about a week ago. 2. Recent anterior wall AL, status post PCI [address] Reyes. 3. Small cell lung cancer, ongoing chemo and radiation therapy. 4. COPD. 5. Coronary artery disease. 6. Hypertension. 7. Obstructive sleep apnea. PLAN: The plan is to admit the patient under telemetry monitoring. The patient will be placed under neutropenic precautions and he will be treated with empiric cefepime. The patient will also be given Neupogen and I will follow up on the infectious workup including cultures and procalcitonin level. Dr. Solis will also be consulted on this case. Otherwise, for the rest of stable past medical conditions including hypertension, coronary disease, COPD et al, I will continue home medications. Standard DVT prophylaxis. The patient is full code at this time. YSC/MODL Ralph Sanchez MD / [id number] CC: MD Hosea Lerma M.D., F.A.C.C. Mario Solis MD
[2016-06-29 21:06] LABS: INFLUENZA A SCREEN NEGATIVE (NEGATIVE); INFLUENZA B SCREEN NEGATIVE (NEGATIVE)
[2016-06-29 21:08] LABS: ASCORBIC ACID (UR NOT ORDER) NEG (NEG); BILIRUBIN, URINE NEGATIVE (NEG); KETONE, URINE NEGATIVE (NEG); LEUKOCYTE ESTERASE(NOT OR TRACE (NEG); NITRITE (URINE) NEG (NEG); WBC (NOT ORDERED) (RFLEX) 16 (0-5)
[2016-06-29 21:22] LABS: BASOPHILS 0 %; EOSINOPHILS 0 %; HEMATOCRIT 30.5 % (40.0-51.0); HEMOGLOBIN 10.4 g/dL (13.6-17.8); LYMPHOCYTES ABSOLUTE 0.19 10/3/uL (0.67-4.30); MEAN CORPUS HGB CONC 34.1 g/dL (32.0-36.0); MEAN PLATELET VOLUME 9.2 fL (9.2-13.0); MONOCYTES 42.1 %; MONOCYTES ABSOLUTE 0.16 10/3/uL (0.21-1.20); NEUTROPHILS 7.9 %; NEUTROPHILS ABSOLUTE 0.03 10/3/uL (2.02-8.40); RBC DISTRIBUTION WIDTH 15.1 % (12.0-16.0); RED CELL COUNT 3.72 10/6/uL (4.7-6.1)
[2016-06-29 21:24] LABS: ER CBC TAT 0 Hrs 01 Mins; PLATELET COUNT 103 10/3/uL (150-400); WHITE BLOOD CELLS 0.4 10/3/uL (4.5-10.5)
[2016-06-29 21:26] LABS: MANUAL DIFF NO %
[2016-06-29 21:33] LABS: INTERNATIONAL NORMAL RATI 1.2 UNITS (-); PARTIAL THROMBO TIME 24.9 SEC (22.5-37.2); PROTIME (NOT ORD) 14.6 SEC (12.0-14.5)
[2016-06-29 21:40] LABS: A/G RATIO 0.7 (0.7-1.9); ALBUMIN 2.6 G/DL (3.5-5.0); ALKALINE PHOSPHATASE 75 U/L (45-117); BUN (BLOOD UREA NITROGEN) 20 MG/DL (6-23); CHLORIDE, SERUM 101 MMOL/L (96-112); CO2 (CARBON DIOXIDE) 23 MMOL/L (24-34); CREATININE 1.12 MG/DL (0.70-1.30); GFR AFRICAN AMERICAN 75 ML/MIN (>=60); GFR NON AFRICAN AMERICAN 65 ML/MIN (>=60); GLOBULIN 3.9 G/DL (2.5-4.1); GLUCOSE, SERUM 149 MG/DL (60-99); POTASSIUM, SERUM 3.6 MMOL/L (3.5-5.3); SGOT(AST) 56 U/L (5-40); SGPT(ALT) 86 U/L (5-65); SODIUM, SERUM 134 MMOL/L (135-148); TOTAL BILIRUBIN 0.4 MG/DL (0-1.2); TOTAL PROTEIN 6.5 G/DL (6.0-8.5)
[2016-06-29 21:44] LABS: ANISOCYTOSIS 1+ (5-10/OIF) (0-5/OIF); EOSINOPHILS 1 %; ER DIFF TAT 0 Hrs 21 Mins; LYMPHOCYTES 66 %; LYMPHOCYTES ABSOLUTE (CALC) 0.26 10/3/uL (0.67-4.30); MONOCYTES 22 %; MONOCYTES ABSOLUTE (CALC) 0.09 10/3/uL (0.21-1.20); NEUTROPHILS ABSOLUTE (CALC) 0.04 10/3/uL (2.02-8.40); PLATELET ESTIMATE SLT DEC (ADEQUATE); SCHISTOCYTES OCC (0-2/OIF); SEGMENTED NEUTROPHIL (0) 11 %; TOTAL NUCLEATED CELLS 100
[2016-06-29 21:45] LABS: ACANTHOCYTES FEW (3-10/OIF); BURR CELLS 1+ (3-10/OIF) (0-2/OIF); TEARDROP SHAPED RBCS OCC (0-2/OIF)
[~2016-06-29 21:52] MED LIST changes: +BRILINTA90 MG PO; +COMP5B PO; +COREG3 PO; +NITROSTAT0.4 MG SL; +OMNICEF300 PO; +PLAVIX PO; +PRIN10 PO; +SUCR PO; +ZOFRANODT8 SL
[2016-06-30 00:07] LABS: PROCALCITONIN 0.14 ng/mL (<0.5)
[2016-06-30 13:30] LABS: HEMATOCRIT 27.6 % (40.0-51.0); HEMOGLOBIN 9.4 g/dL (13.6-17.8); MEAN CORPUS HGB CONC 34.1 g/dL (32.0-36.0); MEAN CORPUSCULAR HEMOGLOB 27.8 pg (26.0-34.0); MEAN CORPUSCULAR VOLUME 81.7 fL (80-100); MEAN PLATELET VOLUME 9.6 fL (9.2-13.0); PLATELET COUNT 63 10/3/uL (150-400); RBC DISTRIBUTION WIDTH 15.4 % (12.0-16.0); RED CELL COUNT 3.38 10/6/uL (4.7-6.1); WHITE BLOOD CELLS 0.5 10/3/uL (4.5-10.5)
[2016-06-30 13:31] LABS: MANUAL DIFF YES %
[2016-06-30 14:05] LABS: BAND NEUTROPHILS 20 %; LYMPHOCYTES 40 %; MONOCYTES 20 %; PLATELET ESTIMATE DEC (ADEQUATE); SEGMENTED NEUTROPHIL (0) 20 %; TOTAL NUCLEATED CELLS 10
[2016-06-30 14:06] LABS: ACANTHOCYTES OCC (0-2/OIF)
[2016-06-30 14:07] LABS: BURR CELLS 1+ (3-10/OIF) (0-2/OIF)
[2016-07-01 05:12] LABS: HEMATOCRIT 25.6 % (40.0-51.0); HEMOGLOBIN 9.1 g/dL (13.6-17.8); MEAN CORPUS HGB CONC 35.5 g/dL (32.0-36.0); MEAN CORPUSCULAR HEMOGLOB 28.4 pg (26.0-34.0); MEAN PLATELET VOLUME 9.6 fL (9.2-13.0); PLATELET COUNT 56 10/3/uL (150-400); RBC DISTRIBUTION WIDTH 15.2 % (12.0-16.0)
[2016-07-01 05:15] LABS: MANUAL DIFF YES %; WHITE BLOOD CELLS 0.8 10/3/uL (4.5-10.5)
[2016-07-01 05:22] LABS: BUN (BLOOD UREA NITROGEN) 17 MG/DL (6-23); CALCIUM, SERUM 7.8 MG/DL (8.5-10.4); CHLORIDE, SERUM 100 MMOL/L (96-112); CO2 (CARBON DIOXIDE) 22 MMOL/L (24-34); CREATININE 0.95 MG/DL (0.70-1.30); GFR AFRICAN AMERICAN 92 ML/MIN (>=60); GFR NON AFRICAN AMERICAN 79 ML/MIN (>=60); GLUCOSE, SERUM 91 MG/DL (60-99); POTASSIUM, SERUM 3.4 MMOL/L (3.5-5.3); SODIUM, SERUM 132 MMOL/L (135-148)
[2016-07-01 06:05] LABS: BAND NEUTROPHILS 12 %; LYMPHOCYTES 30 %; LYMPHOCYTES ABSOLUTE (CALC) 0.24 10/3/uL (0.67-4.30); MONOCYTES ABSOLUTE (CALC) 0.04 10/3/uL (0.21-1.20); NEUTROPHILS ABSOLUTE (CALC) 0.52 10/3/uL (2.02-8.40); SEGMENTED NEUTROPHIL (0) 43 %; TOTAL NUCLEATED CELLS 100
[2016-07-01 06:06] LABS: MONOCYTES 15 %; PLATELET ESTIMATE DEC (ADEQUATE); POIKILOCYTOSIS 1+ (5-10/OIF) (0-5/OIF)
[2016-07-01 06:07] LABS: OVALOCYTES 1+ (3-10/OIF) (0-2/OIF)
[2016-07-02 07:02] LABS: HEMATOCRIT 25.5 % (40.0-51.0); HEMOGLOBIN 8.9 g/dL (13.6-17.8); MEAN CORPUS HGB CONC 34.9 g/dL (32.0-36.0); MEAN CORPUSCULAR VOLUME 80.2 fL (80-100); MEAN PLATELET VOLUME 10.1 fL (9.2-13.0); PLATELET COUNT 65 10/3/uL (150-400); RBC DISTRIBUTION WIDTH 15.6 % (12.0-16.0); RED CELL COUNT 3.18 10/6/uL (4.7-6.1)
[2016-07-02 07:05] LABS: MANUAL DIFF YES %; WHITE BLOOD CELLS 1.3 10/3/uL (4.5-10.5)
[2016-07-02 07:15] LABS: BUN (BLOOD UREA NITROGEN) 17 MG/DL (6-23); CALCIUM, SERUM 8.2 MG/DL (8.5-10.4); CHLORIDE, SERUM 106 MMOL/L (96-112); CO2 (CARBON DIOXIDE) 19 MMOL/L (24-34); CREATININE 0.79 MG/DL (0.70-1.30); GFR AFRICAN AMERICAN 103 ML/MIN (>=60); GFR NON AFRICAN AMERICAN 89 ML/MIN (>=60); GLUCOSE, SERUM 86 MG/DL (60-99); POTASSIUM, SERUM 3.6 MMOL/L (3.5-5.3); SODIUM, SERUM 137 MMOL/L (135-148)
[2016-07-02 07:36] LABS: BAND NEUTROPHILS 22 %; LYMPHOCYTES 32 %; LYMPHOCYTES ABSOLUTE (CALC) 0.42 10/3/uL (0.67-4.30); MONOCYTES 6 %; MONOCYTES ABSOLUTE (CALC) 0.08 10/3/uL (0.21-1.20); NEUTROPHILS ABSOLUTE (CALC) 0.81 10/3/uL (2.02-8.40); PLATELET ESTIMATE DEC (ADEQUATE); POIKILOCYTOSIS 1+ (5-10/OIF) (0-5/OIF); POLYCHROMASIA 1+ (2-5/OIF) (0-1/OIF); SEGMENTED NEUTROPHIL (0) 40 %; TOTAL NUCLEATED CELLS 50; TOXIC GRANULATION 1+
[2016-07-02 07:37] LABS: BURR CELLS 1+ (3-10/OIF) (0-2/OIF)
[2016-07-02] MEDS ORDERED: MD ANDERSON PO/LIQ (12:38)
== END 2016-07-02 15:32 | disposition home or self-care (01) | DRG 808 ==
LOC: ER 21:52 → 4EA 22:44
PROVIDERS: Emergency Medicine; Internal Medicine; Internal Medicine Hematology & Oncology; Nurse Practitioner
DX: D70.9 Neutropenia, unspecified (principal); I21.19 ST elevation (STEMI) myocardial infarction involving other coronary artery of inferior wall; E87.2 Acidosis; N39.0 Urinary tract infection, site not specified; C34.90 Malignant neoplasm of unspecified part of unspecified bronchus or lung; J44.9 Chronic obstructive pulmonary disease, unspecified; D61.810 Antineoplastic chemotherapy induced pancytopenia; E78.5 Hyperlipidemia, unspecified; I10 Essential (primary) hypertension; Z95.5 Presence of coronary angioplasty implant and graft; I25.10 Atherosclerotic heart disease of native coronary artery without angina pectoris; G47.33 Obstructive sleep apnea (adult) (pediatric)
CPT/HCPCS: 71010; 77386; 80048; 80053; 81001; 83605; 84145; 84484; 85025; 85610; 85730; 87040; 87804; 93005; 96365; 99285; A9270-GY; J0692; J1447